=== PATIENT | female | born 1950 | race Caucasian/White ===

== ENCOUNTER 2025-03-29 23:12 | Emergency (ER) | payer MEDICARE, SELFPAY ==
[2025-03-29 23:16] VITALS: BP 166/82
[2025-03-30 00:25] VITALS: BMI 24.8
--- NOTE | 2025-03-30 00:28 | ED.GENMED ---
History of Present Illness
General
Chief Complaint: Rabies
Source: patient
Exam Limitations: none
Time Seen by Provider: 03/30/25 00:11
History of Present Illness
History of Present Illness:
74-year-old female presents complaining of right hand pain after a flying black animal struck her hand. She thinks it was a bat. She is concerned about a rabies exposure. This happened after dark. She was closing up a curtain on her gazebo and
the bat flew out and hit her hand. No other complaints
Phy Exam
Physical Exam
Physical Exam:
General: Well-appearing female no acute respiratory distress
HEENT: Normocephalic
Skin: Intact without any puncture wounds
Course
Orders/Labs/Results
Orders:
Orders
03/30/25 00:28
Rabies Immune Globulin/Pf [HyperRAB] 1,352 unit IM NOW STA
Rabies Vaccine (Pcec)/Pf [Rabavert Rabies Vacc W-Diluent] 2.5 unit IM .ONCE ONE
Vital Signs
Initial and Last Documented VS:
Initial Vital Signs
Temp Pulse Resp BP Pulse Ox
97.5 F 76 20 166/82 99
03/29/25 23:16 03/29/25 23:16 03/29/25 23:16 03/29/25 23:16 03/29/25 23:16
Last Documented Vital Signs
Temp Pulse Resp BP Pulse Ox
97.5 F 76 20 166/82 99
03/29/25 23:16 03/29/25 23:16 03/29/25 23:16 03/29/25 23:16 03/29/25 23:16
MDM/Problems Addressed
Differential Diagnosis Includes:
Patient came in direct contact with a bat. She is concerned about rabies exposure. The bat flew away. Will initiate rabies vaccine and immunoglobulin. She will follow-up with the infusion center for the remaining vaccines
*Pulse Oximetry
SaO2: 99
Oxygen Mode of Delivery: Room air
Patient hypoxic: no
*Critical Care Note
Total Time (30-74mins, 75-104mins- exclusive of procedures): Not Applicable
ED Attending Note
-
Portions of this chart may have been created with voice recognition software.� Occasional wrong word or��sound alike� substitutions may have occurred due to the inherent limitations of voice recognition software.
Discharge Plan
Departure
Patient Disposition: Home (Routine Discharge)
Date of Disposition: 03/30/25
Time of Disposition: 00:30
Patient with high blood pressure during this ER visit?: No
Discharge Problem:
Rabies, need for prophylactic vaccination against
Instructions: Rabies
Stand Alone Forms: Rabies Vaccine Post Exp Dosing
Activity Restrictions/Additional Instructions:
Follow-up with the outpatient infusion center for the remaining rabies vaccines
Interventions
Interventions:
*Risk Screen - Suicide Last Done: 03/29/25 23:16
*General Assessment Last Done: 03/29/25 23:16
*Neglect/Abuse Screening Last Done: 03/29/25 23:16
*ED- Fall Risk Assessment Last Done: 03/29/25 23:16
*ED COVID-19 Vaccine History Last Done: 03/29/25 23:16
Discharge Date and Time
Print Language: [place]
[2025-03-30] MEDS: RABAVERT RABIES VACC W-DILUENT 2.5 UNIT IM (01:25)
[2025-03-30 01:44] VITALS: BP 142/73
== END 2025-03-30 02:09 | disposition home or self-care (01) ==
LOC: EMR 23:12
PROVIDERS: EMERGENCY PHYSICIAN Student in an Organized Health Care Education/Training Program; FAMILY PHYSICIAN Internal Medicine
DX: M79.641 Pain in right hand (principal); W55.82XA Struck by other mammals, initial encounter; Z20.3 Contact with and (suspected) exposure to rabies; Z23 Encounter for immunization; Z29.14 Encounter for prophylactic rabies immune globulin
CPT/HCPCS: 90471; 96372; 99284; 90375; 90675

== ENCOUNTER 2025-04-12 15:02 | Outpatient (RCR) | payer MEDICARE, SELFPAY ==
[2025-04-01 15:20] VITALS: BP 139/64
[2025-04-01] MEDS: RABAVERT RABIES VACC W-DILUENT 2.5 UNIT IM (15:31)
[2025-04-05 15:20] VITALS: BP 145/66
[2025-04-05] MEDS: RABAVERT RABIES VACC W-DILUENT 2.5 UNIT IM (15:28)
[2025-04-12 15:15] VITALS: BP 133/66
[2025-04-12] MEDS: RABAVERT RABIES VACC W-DILUENT 2.5 UNIT IM (15:22)
== END 2025-04-23 23:59 | disposition home or self-care (01) ==
LOC: OID 15:02
PROVIDERS: ATTENDING PHYSICIAN Student in an Organized Health Care Education/Training Program
DX: Z20.3 Contact with and (suspected) exposure to rabies (principal); Z23 Encounter for immunization
CPT/HCPCS: 90471; 90675